=== PATIENT | male | born 1990 | race Two or more races ===

== ENCOUNTER 2019-01-02 16:42 | Emergency (ER) | payer OTHER ==
[2019-01-02] VITALS (8 sets, daily range): BP systolic 102–129; BP diastolic 57–87
[~2019-01-02] VITALS: Ht 172.7 cm; Wt 72.6 kg
--- NOTE | 2019-01-02 16:45 | NUR ---
ED Nurse Note: brought in by [id number] due to behavior complaint. Per EMS, pt was walking around and crossed the street. Pt is asleep at this time. Hx Schizo and bipolar.
--- NOTE | 2019-01-02 17:32 | NUR ---
ED Nurse Note: Pt started to get agitated. Yelling at the staffs. Does not remember what happened and does not follow commands. Received verbal order for behavior restraints from ERMD. Four point restraints applied. VSS. No s/s of distress. Reorientated pt regarding the definition of the restraints, reinforcement needed.
[2019-01-02] MEDS ORDERED: LORazepam Inj 2mg/ml 1ml IV ONE (17:45)
[2019-01-02 18:16] LABS: HEMATOCRIT 43.2 % (42.0-52.0); HEMOGLOBIN 14.9 G/DL (14.2-18.0); MEAN CORPUSCULAR VOLUME 94 FL (80-99); PLATELET COUNT 228 K/UL (150-450); RED BLOOD COUNT 4.62 M/UL (4.70-6.10); RED CELL DISTRIBUTION WIDTH 10.9 % (11.6-14.8); WHITE BLOOD COUNT 14.3 K/UL (4.8-10.8)
[2019-01-02 18:22] LABS: ANION GAP 12 mmol/L (5-15); CALCIUM 9.5 MG/DL (8.5-10.1); CARBON DIOXIDE 25 MMOL/L (21-32); CHLORIDE 102 MMOL/L (98-107); POTASSIUM 4.2 MMOL/L (3.5-5.1); SODIUM 139 MMOL/L (136-145)
[2019-01-02 18:29] LABS: BLOOD UREA NITROGEN 16 mg/dL (7-18)
[2019-01-02 18:33] LABS: ALANINE AMINOTRANSFERASE 37 U/L (12-78); ALBUMIN 4.2 G/DL (3.4-5.0); ASPARTATE AMINO TRANSFERASE 27 U/L (15-37)
[2019-01-02 18:34] LABS: ALBUMIN/GLOBULIN RATIO 1.6 (1.0-2.7); ALKALINE PHOSPHATASE 105 U/L (46-116)
--- NOTE | 2019-01-02 18:45 | NUR ---
ED Nurse Note: Pt is A/Ox2. Pt does not remember what happened. Denies SI/HI at this time. Pt is now on bilateral writ soft restraints. ERMD made aware. Will continue to monitor.
--- NOTE | 2019-01-02 19:00 | NUR ---
ED Nurse Note: received report from RN Jacobo, pt resting in bed comfortably, VSS denies SI/HI/VH,AH, pt states he doesn't recall what happened. resp even and unlabored on RA, airway intact. Mother and family member at the bedside, will cont monitor. noted soft restraints BUE, skin intact, no sx injuries, cap refill <3sec, CMS intact BUE. will cont monitor. Will notify ERMD regarding restraints, pt calm and cooperative.
--- NOTE | 2019-01-02 19:00 | NUR ---
HAND-OFF: Report given to NARENDRA Quintana. Pt is now awake and alert. Family members at the bedside. Pt is now on bilateral wrist restraints. Skin intact, sensation checked, no s/s of swelling. Denies SI/HI at this time.
--- NOTE | 2019-01-02 19:22 | NUR ---
ED Nurse Note: ERMD notified regarding pt's condition, soft restraints d/c. no injuries occured, CMS intact BUE/BLE, cap refill <3sec, skin intact.
--- NOTE | 2019-01-02 21:06 | NUR ---
ED Nurse Note: pt cleared to be d/c per ERMD, pt dicharge and aftercare instruction provided, pt education done via discussion and handout, pt advised to follow up with pcp/ list of mental health clinic provided or return to ed if sx worsen or new sx develop, pt and the family verbalized understanding and agrees with plan, vss, resp even and unlabored on RA, ambulatory w/ steady gait, denies SI/HI/VH/AH, left w/ all belongings. pt accompanied by family member and the mother.
--- NOTE | 2019-01-02 21:08 | NUR ---
ED Nurse Note: iv d/c and wrist band removed.
--- NOTE | 2019-01-03 14:45 | Emergency Room Report ---
History of Present Illness General Chief Complaint: Behavioral Complaint Source: Patient, Family Member, EMS Present Illness HPI 28-year-old male presents ED for evaluation. Patient brought in by EMS for behavioral complaint. Found running through the streets. Upon arrival patient agitated and screaming. Family told EMS that patient had a panic attack after thinking that his mother was going to from a heart attack. No alcohol or drug use. On arrival patient denies SI or HI. Denies hearing voices. No other aggravating relieving factors. Denies any other associated symptoms Allergies: Coded Allergies: No Known Allergies (Unverified , 01/02/19) Patient History Past Medical History: psych hx Past Surgical History: none Pertinent Family History: none Social History: Denies: smoking, alcohol use, drug use Immunizations: UTD Reviewed Nursing Documentation: PMH: Agreed; PSxH: Agreed Nursing Documentation-PMH Past Medical History: No History, Except For History Of Psychiatric Problem: Yes Review of Systems All Other Systems: negative except mentioned in HPI Physical Exam Vital Signs Date Time Temp Pulse Resp B/P (MAP) Pulse Ox O2 Delivery O2 Flow Rate FiO2 01/02/19 16:40 98.2 103 20 150/99 98 Room Air Sp02 EP Interpretation: reviewed, normal General Appearance: no apparent distress, alert, GCS 15, non-toxic Head: normocephalic, atraumatic Eyes: bilateral eye normal inspection, bilateral eye PERRL ENT: hearing grossly normal, normal pharynx, no angioedema, normal voice Neck: full range of motion, supple/symm/no masses Respiratory: chest non-tender, lungs clear, normal breath sounds, speaking full sentences Cardiovascular #1: regular rate, rhythm, no edema Cardiovascular #2: 2+ carotid (R), 2+ carotid (L), 2+ radial (R), 2+ radial (L) , 2+ dorsalis pedis (R), 2+ dorsalis pedis (L) Gastrointestinal: normal bowel sounds, non tender, soft, non-distended, no guarding, no rebound Rectal: deferred Genitourinary: normal inspection, no CVA tenderness Musculoskeletal: back normal, gait/station normal, normal range of motion, non- tender Neurologic: alert, oriented x3, responsive, motor strength/tone normal, sensory intact, speech normal Psychiatric: no suicidal/homicidal ideation, no delusions, anxious Reflexes: 3+ bicep (R), 3+ bicep (L), 3+ tricep (R), 3+ tricep (L), 3+ knee (R) , 3+ knee (L) Skin: normal color, no rash, warm/dry, well hydrated Lymphatic: no adenopathy Medical Decision Making Restraint Attestation I, Carson Daniels MD, have personally evaluated this patient. Laboratory tests have been reviewed and addressed accordingly. The patient is deemed to present a danger to themselves and/or others. This is based on the exam, history (provided by patient, EMS/[facility] and/or family) and observed or reported behavior. Attempts for non-invasive measures have been considered and/or attempted, however, have been futile. It is in the best interest of the nursing staff, the patient, and others involved in this patient's care that behavioral restraints be applied. Patient evaluation reveals the following: Diagnostic Impression: Primary Impression: Behavioral disorder Additional Impression: Anxiety attack ER Course Hospital Course 28-year-old male presents ED status post anxiety and panic attack Differential diagnoses include: psychosis, overdose, dehydration, anxiety Clinical course Patient placed on stretcher. on gambling monitor. After initial history and physical I ordered labs, IVfs, ativan, restraints labs reviewed- no leukocytosis, hemoglobin/hematocrit stable, Utox negative electrolytes okay Restraints removed On reassessment patient feeling better. more alert and oriented. Denies SI or HI. I do not believe patient requires emergent psychiatric evaluation at this time. Patient and family agree. Patient states he has psychiatrist. However we will provide mental health referrals. I. I feel this is a highly complex case requiring extensive working including EKG/Rhythm strip, Xray/CT/US, Blood/urine lab work, repeat exams while in ED, and administration of strong opiates/narcotics for pain control, admission to hospital or close patient follow up. Diagnosis - anxiety, behavioral disorder Stable and discharged to home. Followup with PMD/psych. Return to ED if symptoms recur or worse Labs Test 01/02/19 17:50 White Blood Count 14.3 K/UL (4.8-10.8) Red Blood Count 4.62 M/UL (4.70-6.10) Hemoglobin 14.9 G/DL (14.2-18.0) Hematocrit 43.2 % (42.0-52.0) Mean Corpuscular Volume 94 FL (80-99) Mean Corpuscular Hemoglobin 32.2 PG (27.0-31.0) Mean Corpuscular Hemoglobin Concent 34.4 G/DL (32.0-36.0) Red Cell Distribution Width 10.9 % (11.6-14.8) Platelet Count 228 K/UL (150-450) Mean Platelet Volume 6.1 FL (6.5-10.1) Neutrophils (%) (Auto) % (45.0-75.0) Lymphocytes (%) (Auto) % (20.0-45.0) Monocytes (%) (Auto) % (1.0-10.0) Eosinophils (%) (Auto) % (0.0-3.0) Basophils (%) (Auto) % (0.0-2.0) Sodium Level 139 MMOL/L (136-145) Potassium Level 4.2 MMOL/L (3.5-5.1) Chloride Level 102 MMOL/L (98-107) Carbon Dioxide Level 25 MMOL/L (21-32) Anion Gap 12 mmol/L (5-15) Blood Urea Nitrogen 16 mg/dL (7-18) Creatinine 1.0 MG/DL (0.55-1.30) Estimat Glomerular Filtration Rate > 60 mL/min (>60) Glucose Level 114 MG/DL (74-106) Calcium Level 9.5 MG/DL (8.5-10.1) Total Bilirubin 1.0 MG/DL (0.2-1.0) Aspartate Amino Transf (AST/SGOT) 27 U/L (15-37) Alanine Aminotransferase (ALT/SGPT) 37 U/L (12-78) Alkaline Phosphatase 105 U/L (46-116) Total Protein 7.0 G/DL (6.4-8.2) Albumin 4.2 G/DL (3.4-5.0) Globulin 2.6 g/dL Albumin/Globulin Ratio 1.6 (1.0-2.7) Salicylates Level < 0.2 ug/mL (2.8-20) Urine Opiates Screen Negative (NEGATIVE) Acetaminophen Level < 2 MCG/ML (10-30) Urine Barbiturates Screen Negative (NEGATIVE) Phencyclidine (PCP) Screen Negative (NEGATIVE) Urine Amphetamines Screen Negative (NEGATIVE) Urine Benzodiazepines Screen Negative (NEGATIVE) Urine Cocaine Screen Negative (NEGATIVE) Urine Marijuana (THC) Screen Negative (NEGATIVE) Serum Alcohol < 3 mg/dL Last Vital Signs Date Time Temp Pulse Resp B/P (MAP) Pulse Ox O2 Delivery O2 Flow Rate FiO2 01/02/19 21:05 98.4 70 18 112/87 98 Room Air Status: improved Disposition: HOME, SELF-CARE Condition: Stable Referrals: [facility]ERR[facility] - Peds ER - [facility] Intake Hotline - Patient Instructions: Panic Attacks, [id number] Carson Daneils MD Jan 03, 2019 14:45
== END 2019-01-02 21:05 | disposition home or self-care (01) ==
LOC: EDBD 16:42 → EMR 17:17
DX: F91.9 Conduct disorder, unspecified (principal); F41.9 Anxiety disorder, unspecified
CPT/HCPCS: 36415; 80053; 80307; 80329; 85025; 96361; 96374; 99285